=== PATIENT | male | born 1965 | race Caucasian/White ===

== ENCOUNTER 2017-02-08 17:08 | Emergency (ER) | payer MEDICAID ==
[~2017-02-08] VITALS: Ht 172.7 cm; Wt 79.9 kg
[2017-02-08] MEDS ORDERED: SODIUM CHLORIDE FLUSH 10ML SYR IVF ONE (18:00)
[2017-02-08] MEDS ORDERED: SODIUM CHLORIDE 0.9% 1,000ML IVBOLUS ONE (18:00)
[2017-02-08 18:25] LABS: HEMOGLOBIN 14.3 g/dL (13.7-18.0)
[2017-02-08 18:38] LABS: BLOOD UREA NITROGEN 13 mg/dL (7-18)
[2017-02-08] MEDS ORDERED: LIDOCAINE-MPF 2% ,5ML ONE (19:50)
[2017-02-08] MEDS ORDERED: KETOROLAC 30 MG/1 ML ONE (19:50)
[2017-02-08] MEDS ORDERED: CLINDAMYCIN PMX 600MG/50ML 50 ML ONE (19:51)
[2017-02-08] MEDS ORDERED: CLINDAMYCIN PMX 600MG/50ML 50 ML IV ONE (20:00)
[2017-02-08] MEDS ORDERED: KETOROLAC 30 MG/1 ML IVPush ONE (20:00)
[2017-02-08] MEDS ORDERED: VANCOMYCIN PER PHARMACY MC ONE (20:00)
[2017-02-08] MEDS ORDERED: LIDOCAINE 2%, 20ML SQ ONE (20:00)
[2017-02-08] MEDS ORDERED: VANCOMYCIN 1,600 MG in SODIUM CHLORIDE 0.9% 250 ML IV ONE (20:30)
[2017-02-08 23:15] VITALS: BP 119/72
== END 2017-02-08 23:17 | disposition home or self-care (01) ==
LOC: ED 22:18
DX: L02.511 Cutaneous abscess of right hand (principal); I89.1 Lymphangitis; Z90.49 Acquired absence of other specified parts of digestive tract
CPT/HCPCS: 10060; 29130; 36415; 73130; 80048; 82040; 83605; 85025; 87040; 96361; 96365; 96366; 96367; 96375; 99285; J1885; J3370; J3490; J7030; J7050

== ENCOUNTER 2017-02-09 22:37 | Emergency (ER) | payer MEDICAID ==
[~2017-02-09] VITALS: Ht 172.7 cm; Wt 80.6 kg
[2017-02-09 22:39] VITALS: BP 134/68
== END 2017-02-09 23:18 | disposition home or self-care (01) ==
LOC: ED 23:01
DX: L02.91 Cutaneous abscess, unspecified (principal)
CPT/HCPCS: 99281

== ENCOUNTER 2017-04-08 18:12 | Emergency (ER) | payer MEDICAID ==
[~2017-04-08] VITALS: Ht 170.2 cm; Wt 81.0 kg
[2017-04-08 18:15] VITALS: BP 131/74
== END 2017-04-08 19:23 | disposition home or self-care (01) ==
LOC: ED 18:59
DX: S43.51XA Sprain of right acromioclavicular joint, initial encounter (principal); X58.XXXA Exposure to other specified factors, initial encounter; Y93.89 Activity, other specified; Y99.8 Other external cause status; Y92.009 Unspecified place in unspecified non-institutional (private) residence as the place of occurrence of the external cause
CPT/HCPCS: 99284

== ENCOUNTER 2017-12-13 02:09 | Emergency (ER) | payer MEDICAID ==
[~2017-12-13] VITALS: Ht 170.2 cm; Wt 78.9 kg
[2017-12-13 02:09] VITALS: BP 143/79
[2017-12-13 03:02] LABS: RAPID INFLUENZA A Negative (Negative); RAPID INFLUENZA B Negative (Negative)
[2017-12-13 03:07] LABS: BASOPHILS % (AUTO) 0 % (0-1); EOSINOPHILS # (AUTO) 0.02 x10^3/uL (0-0.4); EOSINOPHILS % (AUTO) 0 % (1-7); LYMPHOCYTES # (AUTO) 0.55 x10^3/uL (1-3.4); LYMPHOCYTES % (AUTO) 3 % (22-44); MD NO; MEAN CORPUSCULAR HEMOGLOBIN 34.2 pg (27.5-34.5); MEAN CORPUSCULAR HGB CONC 33.9 g/dL (33.2-36.2); MONOCYTES % (AUTO) 6 % (2-9); NEUTROPHILS # (AUTO) 14.56 x10^3/uL (1.8-6.8); NEUTROPHILS % (AUTO) 90 % (42-75); PLATELET COUNT 255 x10^3/uL (130-400); RED BLOOD COUNT 4.23 x10^6/uL (4.38-5.82); RED CELL DISTRIBUTION WIDTH 13.4 % (9.4-14.8)
[2017-12-13 03:20] LABS: ALBUMIN 3.7 g/dL (3.4-5.0); ANION GAP 7 mmol/L (5-15); CALCIUM 8.5 mg/dL (8.5-10.1); CHLORIDE 104 mmol/L (98-107); CREATININE 0.75 mg/dL (0.7-1.3)
[2017-12-13 03:23] LABS: TROPONIN I < 0.015 ng/mL (0.000-0.045)
== END 2017-12-13 03:43 | disposition home or self-care (01) ==
LOC: ED 03:40
DX: J20.9 Acute bronchitis, unspecified (principal); F17.200 Nicotine dependence, unspecified, uncomplicated
CPT/HCPCS: 36415; 71046; 80048; 82040; 84484; 85025; 87400; 93005; 99285; 99406

== ENCOUNTER 2020-01-27 15:53 | Emergency (ER) | payer MEDICAID ==
[~2020-01-27] VITALS: Ht 170.2 cm; Wt 81.6 kg
[2020-01-27 16:25] VITALS: BP 116/70
[2020-01-27] MEDS ORDERED: KETOROLAC 30 MG/1 ML IM ONE (17:00)
[2020-01-27] MEDS ORDERED: KETOROLAC 30 MG/1 ML ONE (17:02)
--- NOTE | 2020-01-27 17:30 | NUR ---
Patient/Caregiver given discharge instructions and they have confirmed that they understand the instructions. Patient ambulatory with steady gait. PT LEFT WITH ALL PERSONAL BELONGINGS.
== END 2020-01-27 17:31 | disposition home or self-care (01) ==
LOC: ED 17:20
DX: M25.561 Pain in right knee (principal); G89.29 Other chronic pain; F17.210 Nicotine dependence, cigarettes, uncomplicated; M17.11 Unilateral primary osteoarthritis, right knee
CPT/HCPCS: 73564; 96372; 99283; 99406; J1885

== ENCOUNTER 2020-11-01 20:14 | Emergency (ER) | payer MEDICAID ==
[~2020-11-01] VITALS: Ht 170.2 cm; Wt 75.0 kg
[2020-11-01 20:29] VITALS: BP 132/91
== END 2020-11-01 21:03 | disposition home or self-care (01) ==
LOC: ED 20:34
DX: B86 Scabies (principal); Z90.81 Acquired absence of spleen
CPT/HCPCS: 99283